=== PATIENT | male | born 2000 | race Caucasian/White ===

== ENCOUNTER 2018-03-27 12:27 | Emergency (ER) | payer MEDICAID, SELFPAY ==
[2018-03-27] VITALS (37 sets, daily range): BP systolic 124–156; BP diastolic 72–98; PULSE 72–98; RESP 14–33; TEMP 36.2–36.9; O2SAT 96–100
--- NOTE | 2018-03-27 12:47 | DI.CT_ITS ---
SYMPTOMS/DIAGNOSIS: RT SWOLLEN TONSIL, ? PERITONSILLAR ABSCESS CT OF THE NECK: A postcontrast exam was performed. There is enlargement of the right palatine tonsil with some decreased attenuation consistent with phlegmon. There is no evidence of a drainable abscess. There is some infiltration of the right parapharyngeal fat. The parotid and submandibular glands and epiglottis appear intact. There are multiple enlarged lymph nodes on both sides of the neck, particularly on the right jugulodigastric chain. There is minimal mucosal thickening of the left maxillary sinus. The remaining sinuses appear clear. No significant bony abnormalities are seen. The visualized portions of the lungs appear clear. IMPRESSION: Inflammation of the right palatine tonsil with multiple enlarged reactive lymph nodes. There is no evidence of drainable abscess.
[2018-03-27] MEDS: Normal Saline 1,000 ML 1000 ML IV (13:10)
--- NOTE | 2018-03-27 13:12 | ED.GENADUL_ITS ---
Discharge Plan Disposition Patient Disposition: HOME Condition: Improving Discharge Details Chief Complaint: Sorethroat Clinical Impression: Peritonsillar abscess Primary Care Provider: None,None ED Provider: Brittany Robertson Home Meds and New Rx's Prescriptions: New clindamycin HCl 150 mg capsule 450 mg PO TID 10 Days Qty: 90 RF: 0 ibuprofen 600 mg tablet 600 mg PO Q6H PRN (Reason: pain) Qty: 20 RF: 0 Continue acetaminophen [Acetaminophen Extra Strength] 500 mg Tablet 500 mg PO PRNRF: 0 Discharge Instructions Instructions: Peritonsillar Abscess (ED) Additional Instructions: Take the antibiotics until finished. Alternate Tylenol and Motrin as needed and directed for pain. Avoid hot foods, crackers, chips; mainly drink cool/cold/soft foods for the next few days. You will receive a call from care management regarding follow-up with the ear nose and throat doctor this week. Return immediately to the emergency department for any worsening or new concerning symptoms. Referrals: Dejan Malik DO [OSTEOPATHIC DOCTOR] - Blayne Carpio MD [ [facility] STAFF PHYSICIAN] - Discharge Data Discharge Date/Time-TO BE ENTERED AT DEPARTURE: 03/27/18 15:36 Discharge Physician: Brittany Robertson Medical Decision Making 17 yo M w/ no past medical history who presents with R sided sore throat x 2-3 weeks. No known fever. Has been able to take PO but with pain. BP mildly hypertensive, otherwise vitals within normal limits. Afebrile. Pt appears nontoxic. ENT exam notes likely R peritonsillar abscess. Uvula midline. Pt does admit to some trismus due to pain. No drooling. No submandibular swelling. Lungs cta. Due to trismus, will place an IV, give toradol, decadron, normal saline and will obtain a CT neck to assess extend of likely abscess. Will plan for needle aspiration of abscess. 1430 -- needle aspiration done at bedside and 1cc of purulent drainage expressed. He was given zofran midway through procedure due to nausea/gagging but otherwise tolerated procedure well. Pt admitted to some improvement in symptoms after procedure. Area was also incised with #15 blade to allow continued drainage. CT did not note a drainable abscess but rather a phlegmon but I was able to drain pus. Will send home with prescription for clindamycin and motrin. Will place pt on care management list to arrange for a f/u appt with ENT this week. Pt instruced to return here immediately if worse. 1530 -- pt observed for an hour after procedure and was able to take PO and tolerated well. Pt feels good to go home. Medical Records Medical records reviewed: Yes I reviewed the patient's medical records. Imaging Data Radiologic Study: Radiologist's impression: EXAM: CT Neck With Contrast EXAM DATE/TIME: 03/27/2018 12:50 PM FINDINGS: Sinuses: There is mild mucosal thickening in the left maxillary sinus. No air- fluid levels are identified. Nasopharynx: Normal. Oropharynx: There is enlargement of the right palatine tonsil with tonsillar position. There is heterogeneous diminished attenuation within the tonsil consistent with phlegmon.There is no evidence of focal rim-enhancing encapsulated fluid collections to suggest drainable abscess formation. There is infiltration of the right parapharyngeal fat. Hypopharynx: Normal. Larynx: Normal. Normal epiglottis. Trachea: Normal. Retropharyngeal space: Normal. Submandibular/Parotid glands: Normal. Glands are normal in size. Thyroid: The thyroid gland is normal. Bones/joints: Normal. No acute fracture. Soft tissues: Normal. No significant soft tissue swelling. Vasculature: No acute findings. Lymph nodes: There is enlargement of the jugulodigastric lymph nodes bilaterally which is likely reactive. There are prominent bilateral cervical nodes which are likely reactive. Lung apices: Normal as visualized. IMPRESSION: Enlargement of the right palatine tonsil with phlegmon formation.There is no evidence of focal rim enhancing encapsulated fluid collections to suggest drainable abscess formation. Reactive adenopathy. Remainder of non-emergent findings as described above. Lab Data Lab results reviewed: Yes I reviewed the patient's lab results. 03/27/18 13:45 Tonsil - Not Specified Streptococcus Screen ([facility]) - Pending Laboratory Tests Range/Units 03/27/18 03/27/18 03/27/18 13:05 13:05 13:05 WBC (4.4-10.8) k/cumm 14.05 H RBC (4.50-6.00) m/cumm 5.63 Hgb (13.5-17.5) g/dL 16.5 Hct (40.0-50.0) % 46.6 MCV (80-95) fL 82.8 MCH (27.0-33.0) pg 29.3 MCHC (32.0-36.0) g/dL 35.4 RDW (11.8-14.1) % 12.2 Plt Count (130-400) x1000/uL 297 MPV (8.0-11.0) fL 9.6 Immature Gran % 0.2 Neutrophils % 77.1 Lymphocytes % 13.6 Monocytes % 7.0 Eosinophils % 1.9 Basophils % 0.2 Absolute Neutrophils (1.2-6.7) k/cumm 10.83 H Absolute Lymphocytes (1.2-3.4) k/cumm 1.91 Absolute Monocytes (0.11-0.7) k/cumm 0.98 H Absolute Eosinophils (0.0-0.7) k/cumm 0.27 Absolute Basophils (0.0-0.2) k/cumm 0.03 Sodium (136-145) mmol/L 141 Potassium (3.5-5.1) mmol/L 3.8 Chloride (98-107) mmol/L 101 Carbon Dioxide (21.0-32.0) mmol/L 28.7 Anion Gap (3-11) mmol/L 11.3 H BUN (7-18) mg/dL 15 Creatinine (0.70-1.30) mg/dL 1.05 Estimated GFR/1.73 m2 (mL/min/1.73m2) >= 60.00 Glucose (70-100) mg/dL 82 Calcium (8.5-10.1) mg/dL 9.3 Monoscreen (Negative) Negative HPI General Mode of arrival: ambulatory . Date/Time Provider Initiated Documentation: 03/27/18 12:29 . Limitations to Documentation: no limitations . Information obtained by: patient . HPI Narrative: Patient is a 17-year-old male with no past history who presents to the ED with a complaint of right-sided sore throat for the past 2-3 weeks. He admits to pain with swallowing but states he has been able to eat and drink. Patient also admits to right-sided neck pain. Patient does admit to some difficulty opening his mouth due to pain. He denies any known fever. He states he has been alternating Tylenol and Motrin for pain, last dose of Tylenol at 530 this morning. Patient also admits to occasional runny nose and cough but denies any sputum production. He also admits to occasional headache. He has not sought treatment for this problem until today. Related Data Home Medications Medication Instructions Recorded Confirmed acetaminophen [Acetaminophen Extra 500 mg PO PRN 03/27/18 Strength] clindamycin HCl 450 mg PO TID 10 Days #90 cap 03/27/18 ibuprofen 600 mg PO Q6H PRN #20 tab 03/27/18 Previous Rx's Medication Instructions Recorded clindamycin HCl 450 mg PO TID 10 Days #90 cap 03/27/18 ibuprofen 600 mg PO Q6H PRN #20 tab 03/27/18 Allergies Allergy/AdvReac Type Severity Reaction Status Date / Time No Known Allergies Allergy Unverified 03/27/18 12:41 General Stated Complaint: Sorethroat GABY: 5 Review of Systems Review of Systems All systems reviewed & are unremarkable except as noted in HPI and below Constitutional Reports as per HPI, Denies chills and Denies fever(s) Eyes Denies blurry vision ENT Denies dizziness, Reports nasal discharge, Reports sore throat and Reports throat swelling Cardiovascular Denies chest pain and Denies dyspnea Respiratory Reports cough and Denies dyspnea Gastrointestinal Denies abdominal pain, Denies diarrhea and Denies vomiting Genitourinary Denies hematuria and Denies dysuria Musculoskeletal Denies back pain and Denies numbness Integumentary/Breasts Denies lesions and Denies rash Neurologic Denies dizziness and Denies numbness Allergic/Immunologic Reports throat swelling PFSH No significant past medical history (Acute) No significant past surgical history (Acute) Social History Smoking/Tobacco Use Status: Never Social History Smoking/Tobacco Use Status: Never alcohol intake: never substance use type: does not use Exam Const General: cooperative and healthy appearing Orientation: alert and awake [facility] Head: normal to inspection Ears: hearing grossly normal bilaterally, external ears normal, right TM abnormal (injected, dull ) and TM normal on the left General nose exam: external nose normal Face and sinus: normal facial exam and sinuses nontender Mouth: oral mucosae normal Teeth and gingiva: dentition normal Throat: uvula midline and peritonsillar mass on the right fluctuant and edematous Eyes General: appearance normal, both eyes and all related structures Eyelids: eyelids normal Pupils: PERRL EOM: EOM intact bilaterally Neck Neck: normal visual inspection and No submandibular swelling Lymphatic: lymphadenopathy anterior cervical Chest Chest: normal inspection of the chest Resp Effort & Inspection: normal respiratory effort and able to speak in complete sentences Auscultation: clear to auscultation bilaterally Cardio Rate: regular rate Rhythm: regular rhythm GI Inspection: normal to inspection Skin General skin exam: no rashes or lesions noted Neuro General: alert and awake Cognition: normal cognition Speech: speech normal Gait: normal gait Motor: muscle tone normal throughout Sensory Exam: no sensory deficits noted Extrem General: normal to inspection, full ROM and normal capillary refill Psych Appearance: grossly normal Mental Status: mental status grossly normal Speech and Movement: speech and movement normal Affect: normal affect Thought Process: normal Course Vital Signs Temperature 97.2 F L 03/27/18 12:33 Pulse 72 03/27/18 12:33 Respiratory Rate 18 03/27/18 12:33 Blood Pressure 141/85 H 03/27/18 12:33 Pulse Oximetry 96 03/27/18 12:33 Temperature 97.2 F L 03/27/18 12:33 Temperature Source Temporal Artery Scan 03/27/18 12:33 Pulse 72 03/27/18 12:33 Respiratory Rate 18 03/27/18 12:33 Respiratory Effort Non-Labored 03/27/18 12:42 Blood Pressure 141/85 H 03/27/18 12:33 Blood Pressure Position Sitting 03/27/18 12:33 Pulse Oximetry 96 03/27/18 12:33 Oxygen Delivery Method Room Air 03/27/18 12:33 Oxygen Flow Rate 0 03/27/18 12:33 Pain Level 8 03/27/18 12:33 Procedures Abscess I/D Site: Other (peritonsillar abscess) Side (if applicable): Right Local Anesthetic: Lidocaine 1% Amount of anesthesia used (mL): 2 Technique: Needle Aspiration and Other (incised with # 15 blade) Amount of fluid expressed (mL): 1 Irrigation: Yes Packing used?: None
[2018-03-27] MEDS: Dexamethasone 10 MG/ML VIAL IVP (13:20)
[2018-03-27 13:23] LABS: Abs Immature Grans 0.03 k/cumm (0.0-0.09); Absolute Basophil Count 0.03 k/cumm (0.0-0.2); Absolute Eosinophil Count 0.27 k/cumm (0.0-0.7); Absolute Lymphocyte Count 1.91 k/cumm (1.2-3.4); Absolute Monocyte Count 0.98 k/cumm (0.11-0.7); Absolute Neutrophil Count 10.83 k/cumm (1.2-6.7); Basophils % 0.2; Eosinophils % 1.9; HCT 46.6 % (40.0-50.0); HGB 16.5 g/dL (13.5-17.5); Immature Grans % 0.2; Lymphocytes % 13.6; Mean Corp. HGB Concentration 35.4 g/dL (32.0-36.0); Mean Corpuscular Hemoglobin 29.3 pg (27.0-33.0); Mean Corpuscular Volume 82.8 fL (80-95); Mean Platelet Volume 9.6 fL (8.0-11.0); Neutrophils % 77.1; Platelet Count 297 x1000/uL (130-400); RBC 5.63 m/cumm (4.50-6.00); RBC Distribution Width 12.2 % (11.8-14.1); White Blood Cell Count 14.05 k/cumm (4.4-10.8)
[2018-03-27] MEDS: Ketorolac 30 MG/ML VIAL IVP (13:24)
--- NOTE | 2018-03-27 13:29 | NUR.NOTE ---
To CT scan with escort JAN MichelNursing Note:
[2018-03-27 13:30] LABS: Mono Screening Negative (Negative)
[2018-03-27 13:31] LABS: Anion Gap 11.3 mmol/L (3-11); BUN 15 mg/dL (7-18); CO2 28.7 mmol/L (21.0-32.0); CREATININE 1.05 mg/dL (0.70-1.30); Calcium 9.3 mg/dL (8.5-10.1); Chloride 101 mmol/L (98-107); Glucose 82 mg/dL (70-100); Potassium 3.8 mmol/L (3.5-5.1); Sodium 141 mmol/L (136-145)
[2018-03-27] MEDS: Omnipaque 350 MG/ML 100 ML BTL IJ (13:37)
[2018-03-27] MEDS: CLINDAMYCIN 900 MG/50 ML BAG 50 MG IVPB (13:49)
--- NOTE | 2018-03-27 13:57 | NUR.NOTE ---
1340: Returned from CT scan. Throat swabbed and abx started on returnNursing Note:
--- NOTE | 2018-03-27 14:39 | DI.VRAD_ITS ---
EXAM: CT Neck With Contrast EXAM DATE/TIME: 03/27/2018 12:50 PM CLINICAL HISTORY: 17 years old, male; Signs and symptoms; Other: RT swollen tonsil, R/O peritonsillar abcess TECHNIQUE: Axial computed tomography images of the neck with intravenous contrast. Coronal and sagittal reformatted images were created and reviewed. CONTRAST: 100 ml of omnipaque 350 administered intravenously. COMPARISON: No relevant prior studies available. FINDINGS: Sinuses: There is mild mucosal thickening in the left maxillary sinus. No air-fluid levels are identified. Nasopharynx: Normal. Oropharynx: There is enlargement of the right palatine tonsil with tonsillar position. There is heterogeneous diminished attenuation within the tonsil consistent with phlegmon.There is no evidence of focal rim-enhancing encapsulated fluid collections to suggest drainable abscess formation. There is infiltration of the right parapharyngeal fat. Hypopharynx: Normal. Larynx: Normal. Normal epiglottis. Trachea: Normal. Retropharyngeal space: Normal. Submandibular/Parotid glands: Normal. Glands are normal in size. Thyroid: The thyroid gland is normal. Bones/joints: Normal. No acute fracture. Soft tissues: Normal. No significant soft tissue swelling. Vasculature: No acute findings. Lymph nodes: There is enlargement of the jugulodigastric lymph nodes bilaterally which is likely reactive. There are prominent bilateral cervical nodes which are likely reactive. Lung apices: Normal as visualized. IMPRESSION: Enlargement of the right palatine tonsil with phlegmon formation.There is no evidence of focal rim-enhancing encapsulated fluid collections to suggest drainable abscess formation. Reactive adenopathy. Remainder of non-emergent findings as described above. Dictated and Authenticated by: Renetta Walker MD. Ordering:KIM JONES MD
[2018-03-27] MEDS: Benzocaine 20% 60 ML CAN TP (14:40)
[2018-03-27] MEDS: Ondansetron 4 MG/2 ML VIAL (14:40)
== END 2018-03-27 15:36 | disposition home or self-care (01) ==
PROVIDERS: Emergency Provider Physician Assistant
DX: J36 Peritonsillar abscess (principal)
CPT/HCPCS: 36415; 70491; 80048; 87880; 96361; 96365; 96375; 99285; 85025; 86308; 87081; 99284; J1100; J1885; J2405; J3490